=== PATIENT | male | born 1960 ===

== ENCOUNTER → 2021-01-01 15:41 | Outpatient (CLI) | payer OTHER, SELFPAY ==
[2021-01-01 18:05] LABS: COVID19 -Nasal RAPID Negative (Negative)
== END ==
PROVIDERS: PCP Neuromusculoskeletal Medicine & OMM; Visit Provider Physician Assistant
DX: Z01.812 Encounter for preprocedural laboratory examination (principal); Z20.822 Contact with and (suspected) exposure to COVID-19
CPT/HCPCS: 87635

== ENCOUNTER 2021-01-04 06:12 | Day surgery (SDC) | payer OTHER, SELFPAY ==
[2021-01-04] VITALS (21 sets, daily range): BP systolic 103–158; BP diastolic 58–96; PULSE 60–90; RESP 12–21; TEMP 36.1–36.8; O2SAT 93–99; BMI 40.3
--- NOTE | 2021-01-04 07:19 | PM.PREOP ---
Pre-operative Note COVID-19 COVID-19 status: Negative Result date/Date tested (Pos, Neg/Pending): 01/01/21 Interval Note History & Physical reviewed/Exam performed by Physician: Yes Changes to H&P: No
[2021-01-04] MEDS: LACTATED RINGERS 1,000 ML 42 ML IV ×2 (07:23→09:34)
[2021-01-04] MEDS: CEFAZOLIN 2 GM/100 ML FROZ.PIGGY IV ×2 (07:45→16:01)
--- NOTE | 2021-01-04 08:00 | DI.RAD.S_ITS ---
PROCEDURE: XR LUMBAR SPINE 2-3V INDICATIONS: LAMINCTOMY TECHNIQUE: 2 operative views of the lumbar spine were acquired. COMPARISON: [facility], MR, MR LUMBAR SPINE WITHOUT CONTRAST, 07/14/2020, 9:36. FINDINGS: 2 operative images demonstrate localization of the L4-L5 level posteriorly with metallic instruments IMPRESSION: Localization operative films for lumbar surgery Dictated by: Zion Morrell M.D. on 01/04/2021 at 11:09 Approved by: Zion Morrell M.D. on 01/04/2021 at 11:11
--- NOTE | 2021-01-04 08:12 | SUR.OPER ---
Prone on spine table, head in foam head support, padded chest and pelvic supports, gel pad at knees, lower legs supported by pillows; nipples, genitalia and toes free of pressure, arms secured on foam padded arm boards at <90 degrees abduction. Tape over blanket at thigh secured to table.
[2021-01-04] MEDS: THROMBIN (RECOMBINANT) 5,000 UNIT VIAL 5000 UNIT TOP (08:17)
[2021-01-04] MEDS: SODIUM CHLORIDE 0.9% 1,000 ML, GENTAMICIN 80 MG IRR (08:18)
[2021-01-04] MEDS: VANCOMYCIN 1,000 MG VIAL 1000 MG TOP (08:18)
[2021-01-04] MEDS: BUPIVACAINE 0.5% (PF) 4 ML, MORPHINE-PF 4 MG, BUTORPHANOL 1 MG, fentaNYL 100 MCG INJ (08:25)
--- NOTE | 2021-01-04 08:33 | SUR.OPER ---
GLASSES TO PACU WITH PATIENT IN LABELED BAG.
--- NOTE | 2021-01-04 09:43 | P.OP_ITS ---
Operative Date/Time/Diagnoses Date of procedure: 01/04/21 Time of procedure: 09:43 Pre-op diagnosis: Lumbar stenosis with radiculopathy Chronic pain Morbid obesity BMI 40.3 Post-op diagnosis: same Procedure & Clinicians Procedure: L2-3, L3-4, L4-5 laminectomies Use of microscope Placement of epidural catheter Same procedure as scheduled: Yes Indications: [age] year old male with intractable pain from lumbar stenosis. They had failed conservative management and requested operative intervention. Risks and benefits of surgery were discussed and appropriate consents were obtained. Surgeon: Mike Frances Student Support Advisor: Ale Boland Anesthesia Type: General Operative Notes Findings: None Closure Type: primary Specimen(s): none sent Applied: catheter Estimated Blood Loss (mL): 70 Procedure in detail: Patient was brought to the operating room and intubated on the table. A time-out was performed. There were rolled over the well-padded prone position on the Rishi table. The back was prepped and draped in standard sterile fashion. Preoperative antibiotics were given. Using fluoroscopy, a 7 cm incision was made to the well marked right of the midline from L2 through 5. We used Bovie to come down to and split the fascia. We then used the NuVasive MaXcess dilators with fluoroscopy and then opened our retractors. The soft tissue was cleared off with Bovie, a marker was placed, an x-ray was taken to confirm positioning. We then brought in the microscope. A combination of high-speed bur and Kerrison were used to perform a right-sided laminectomy at L4-5. We carefully depressed the dura and reached across to the opposite side and removed the facet hypertrophy and ligamentum to open up the central canal. We cleared out the foramen to decompress the L4 roots. We then moved up to the L3-4 level with a retractor. Again we performed right- sided laminectomy and carefully reached out to the opposite side as well as cleared out the neural foramen until the canal and the exiting L3 roots were free. We then moved up to the L2-3 level with retractors. We performed a right-sided laminectomy and carefully retracted the dura and decompress the opposite side to clear out the entire central canal as well as the foramen with the exiting L2 roots. At the end of this the ball probe could be swept cephalad caudally and out the foramen at every level and everything was open. He was still having fair amount of oozing from all of his bone and muscle and we used FloSeal for hemostasis. The wound was copiously irrigated. An epidural catheter was filled with 100 mcg of fentanyl, 2 mg morphine, 1 mg Stadol, and 4 mL of 0.5% Marcaine. The dura was carefully depressed under the laminotomy site and the catheter was advanced 6 cm cephalad. The retractor was removed and the fascia was closed. The epidural catheter was then injected without resistance and removed. Vancomycin powder was placed in the wound. A superficial drain was placed. Superficial and skin were closed. Sterile dressing was placed. The patient was then rolled over, transferred to the stretcher, and brought to recovery room without complications. Due to his morbid obesity with a BMI greater than 40, this surgery took approximately 30% longer. This was much more complex as we had to work through a deep retractor which limited our mobility and the decompression and increase the time. His morbid obesity also increases his probable postoperative hospital stay with increased risk of infection complications, respiratory complications, etc.. He also has chronic pain which will most likely increase his postoperative stay with pain management. Complications: none Post-operative Condition: stable Disposition: PACU Plan for aftercare: Overnight admission. Maybe 1-2 days of pain management due to his pain tolerance from his chronic pain medication.
[2021-01-04] MEDS: fentaNYL 100 MCG/2 ML INJ IV ×2 (10:35→10:51)
[2021-01-04] MEDS: HYDROMORPHONE 2 MG INJ IV ×4 (10:42→11:19)
[2021-01-04] MEDS: OXYCODONE IR 5 MG TABLET 10 MG PO (10:58)
--- NOTE | 2021-01-04 11:35 | SUR.PHASEI ---
Report to Toney, transition to 217 pending
[2021-01-04] MEDS: MORPHINE ER 15 MG TABLET PO (12:40)
[2021-01-04] MEDS: hydrOXYzine pamoate 25 MG CAPSULE PO ×3 (12:40→21:10)
[2021-01-04] MEDS: LACTATED RINGERS 1,000 ML 125 ML IV ×2 (12:40→21:11)
--- NOTE | 2021-01-04 13:10 | PT.IIE ---
Current Diagnoses Chronic pain syndrome (01/04/21) Spondylosis without myelopathy or radiculopathy, lumbar region (01/04/21) Spinal stenosis, lumbar region with neurogenic claudication (01/04/21) Strain of muscle, fascia and tendon of lower back, initial encounter (01/04/21) Surgery Performed Operation Date: 01/04/21 07:45 Actual Procedures p L2-5 laminectomies(Not Applicable) - Mike Frances MD Physical Therapy Inpatient Evaluation/Re-Eval M1 PT/OT-IP Prior Functional Status Start: 01/04/21 14:06 Freq: NEEDED Status: Active Protocol: Document 01/04/21 13:10 AB (Rec: 01/04/21 14:32 AB [id number]) Medical Review Prior Functional Status Medical History Reviewed Yes Communication able to make needs known; pt is a little drowsy Mobility and Gait pt stated that he is independent with all mobilities and ambulation without AD but occasionally uses a SPC for ambulation depending on back pain Social History Household Members spouse Living Arrangements House Number of Floors (Floors) One Floor Number of Stairs To Enter/Railing? 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 PT-IP Current Condition Start: 01/04/21 14:06 Freq: NEEDED Status: Active Protocol: Document 01/04/21 13:10 AB (Rec: 01/04/21 14:32 AB [id number]) Physical Therapy Current Condition Current Condition Evaluation Date 01/04/21 Treatment Diagnosis s/p L2-5 lami; difficulty in walking Onset Date 01/04/21 Precautions Lumbar Precautions Log Roll,No Twisting,Limit Bending,Lifting Restriction of 10 lbs,Gait Belt above Incisional Area M3 PT-IP Subjective Start: 01/04/21 14:06 Freq: NEEDED Status: Active Protocol: Document 01/04/21 13:10 AB (Rec: 01/04/21 14:32 AB [id number]) Subjective Physical Therapy Visit Type Type Initial Evaluation Visit Start Time 13:10 Visit Stop Time 13:50 Total Visit Minutes 40 Number of BUSINESS LAWYER Visits 0 Physical Therapy Visit Comments Patient Comments pt is agreeable to do PT; c/o increase pain Therapy Pain Assessment Pain When Pain Assessed At Rest Pain Present Pain Present Pain Reported Location lower back Intensity 6 Scale Used Numeric (0 - 10) Pain Behaviors Guarding,Holding Area, Restlessness,Wincing Pain Management Techniques Apply Cold,Modification of Treatment,Re-positioning, Timing of Activity with Medications M4 PT-IP Mobility and Gait Start: 01/04/21 14:06 Freq: NEEDED Status: Active Protocol: Document 01/04/21 13:10 AB (Rec: 01/04/21 14:32 AB [id number]) PT-Bed Mobility Assessment Rolling Type of Rolling Log Rolling Level of Assist Maximal Assistance,1 Person Assistance Supine to Sit Supine to Sit Maximum Assistance,1 Person Assistance PT-Transfer Assessment Sit to and From Stand Sit to and from Stand Minimal Assistance,1 Person Assistance,Use of Upper Extremities Equipment Transfer Assistive Device Gait Belt Orthotic/Prosthetic Devices or Brace: No Transfers Transfer Destination Chair Transfer Technique ambulated using FWW Transfer Ability Level of Assist Minimal Assistance,1 Person Assistance,Use of Upper Extremities Comments Mobility Comments educated pt on back precautions and log roll bed mobility. post-op folder provided. BP in supine: 116/85 , O2 sat at room air 96% ND 85 bpm. completed log roll supine to sit max A and max cues. c/o increase pain but no dizziness/nausea. requires increase time to complete tasks and frequent rest breaks . pt is drowsy and requires cues to keep eyes open. completed sit to stand min A and cues and ambulated towards the chair ~ 12 ft min A and cues. positioned on chair. call light and table placed within reach. spouse arrived during PT session and agreeable to do caregiver training tomorrow depending on how pt is doing. Gait Assessment Gait Gait Assistance Required: Minimum Assistance Distance (Feet) 12 Able to Maintain Weight Bearing Status Yes During Gait Assistive Devices Assistive Device Gait Belt,Front Wheeled Walker Orthotic/Prosthetic Devices or Brace: No Gait Deviations General Gait Pattern Antalgic,Decreased Stride Length,Decreased Feet Clearance Factors Limiting Gait Function Factors Limiting Gait Function Decreased Activity Tolerance, Decreased Sensation,Decreased Strength,Difficulty Following Directions,Limited Range of Motion,Pain,Poor Balance,Poor Safety Awareness PT-Balance Assessment Sitting Balance and Reactions Static Sitting Balance Ability Good Dynamic Sitting Balance Ability Fair Standing Balance and Reactions Static Standing Balance Ability Fair Dynamic Standing Balance Ability Fair Device Used FWW M5 PT-IP Objective Assessments Start: 01/04/21 14:06 Freq: NEEDED Status: Active Protocol: Document 01/04/21 13:10 AB (Rec: 01/04/21 14:32 AB [id number]) Orientation Orientation/Cognition Orientation Name,Place,Situation Safety Awareness Decreased Safety Awareness Gross Range of Motion Lower Extremity ROM Assessment Right Impaired Impairments R knee flexion: ~ 15 degrees; pt stated that he has knee surgeries x 5 and is limited with ROM due to his surgeries Strength Lower Extremity Strength Assessment Right Impaired Hip 3+/5 Knee 3+/5 Sensation Assessment Sensation Sensation Description Numbness Comments Sensation Comments stated chronic decrease sensation on lateral thighs R> L due to knee surgeries Muscle Tone Muscle Tone WNL Yes M6 PT-IP Treatment Start: 01/04/21 14:06 Freq: NEEDED Status: Active Protocol: Document 01/04/21 13:10 AB (Rec: 01/04/21 14:32 AB [id number]) Physical Therapy Treatment Education Education Provided Precautions,Weight Bearing Status,Post-Op Packet,Safety M7 PT-IP Assessment and Plan Start: 01/04/21 14:06 Freq: NEEDED Status: Active Protocol: Document 01/04/21 13:10 AB (Rec: 01/04/21 14:32 AB [id number]) PT Summary Assessment and Plan Potential Rehabilitation Potential Good Status of Condition at Evaluation Evolving Summary Impairments Pain,ROM,Strength,Balance, Coordination,Sensation, Cognition,Bed Mobility, Transfers,Gait,Activity Tolerance Assessment Summary pt requiring max A with bed mobility and min A with transfers and ambulation using FWW. c/o increase pain limiting mobility. pt stated that he plans to go home tomorrow but will do whatever he has to do. will do caregiver training when appropriate. will continue to assess progress. Goals Bed Mobility Goal Independent Transfer Goal Independent,Front Wheeled Walker Gait Goal Independent,Front Wheel Walker Gait Distance 150 Days to Meet Goals 5 Frequency of Treatment Frequency Of Treatment Twice a Day Treatment Plan Physical Therapy Treatment Plan Bed Mobility Training,Transfer Training,Gait Training, Therapeutic Exercise,Balance Retraining,Post Op Education, Discharge Planning,Hot or Cold Pack,Neuromuscular Re-ed, Coordination Retraining Other Recommendations and Next Treatment bed mobility, ambulation, Focus caregiver training when appropriate Recommendations To Nursing Amount of Assist Needed 1 Person Assist Discharge Recommendations PT Discharge Recommendations Home with Assistance Transportation Needs at Discharge Private Vehicle
[2021-01-04] MEDS: GABAPENTIN 300 MG CAPSULE PO ×2 (14:39→21:10)
[2021-01-04] MEDS: OXYCODONE IR 5 MG TABLET PO ×2 (17:00→21:10)
[2021-01-04] MEDS: SENNOSIDES 8.6 MG TABLET 17.2 MG PO (21:10)
[2021-01-04] MEDS: PRAMIPEXOLE 1 MG TABLET PO (21:10)
[2021-01-04] MEDS: DOCUSATE 100 MG CAPSULE PO (21:10)
[2021-01-04] MEDS: TIZANIDINE 4 MG TABLET PO (21:10)
[2021-01-05] MEDS: CEFAZOLIN 2 GM/100 ML FROZ.PIGGY IV (00:01)
[2021-01-05] MEDS: MORPHINE ER 15 MG TABLET PO ×2 (00:01→12:12)
[2021-01-05 04:00] VITALS: BP 120/66; PULSE 55; RESP 18; TEMP 36.4; O2SAT 98
[2021-01-05 05:28] LABS: Hematocrit 36.6 % (41-53); Hemoglobin 11.9 g/dL (13.5-17.5)
[2021-01-05] MEDS: OXYCODONE IR 5 MG TABLET 10 MG PO ×2 (05:59→09:44)
[2021-01-05] MEDS: PANTOPRAZOLE 20 MG TABLET PO (06:00)
[2021-01-05] MEDS: hydrOXYzine pamoate 25 MG CAPSULE PO (06:00)
[2021-01-05 07:33] VITALS: O2SAT 99
[2021-01-05 07:35] VITALS: BP 130/73; PULSE 64; RESP 18; TEMP 36.8; O2SAT 99
--- NOTE | 2021-01-05 08:14 | PM.PNPO.1 ---
Subjective Subjective Date Patient Seen: 01/05/21 Time Patient Seen: 08:14 Interval history: He is doing very well. Good oral pain control. Exam Vital Signs (past 8 hours): - 01/05/21 04:00 01/05/21 07:33 Temperature 97.6 F Pulse Rate 55 L Respiratory Rate 18 Blood Pressure 120/66 Pulse Oximetry 98 99 Oxygen Delivery Method Room Air Oxygen Flow Rate 0 Const Orientation: alert and oriented x3 Back/Spine/Pelvis Other: CDI. 5/5 motor both lower extremities Objective Labs Result Diagrams: 01/05/21 05:07 Labs: Laboratory Results - last 24 hr 01/05/21 05:07 Hgb 11.9 L Hct 36.6 L PFSH Social History household members: spouse Smoking Status: Never smoker alcohol intake: current Assessment & Plan Post-op Postoperative Procedures: Procedures Operation Date: 01/04/21 07:45 Actual Procedures Side Surgeon p L2-5 laminectomies Not Applicable Mike Frances MD He is doing well. Plan to discharge home today.
[2021-01-05] MEDS: CITALOPRAM 10 MG TABLET PO (09:44)
[2021-01-05] MEDS: ASPIRIN EC 81 MG TABLET PO (09:44)
[2021-01-05] MEDS: GABAPENTIN 300 MG CAPSULE PO (09:44)
[2021-01-05] MEDS: FINASTERIDE 5 MG TABLET PO (09:44)
[2021-01-05] MEDS: DOCUSATE 100 MG CAPSULE PO (09:44)
--- NOTE | 2021-01-05 11:31 | PT.IPTN ---
Current Diagnoses Chronic pain syndrome (01/04/21) Spondylosis without myelopathy or radiculopathy, lumbar region (01/04/21) Spinal stenosis, lumbar region with neurogenic claudication (01/04/21) Strain of muscle, fascia and tendon of lower back, initial encounter (01/04/21) Surgery Performed Operation Date: 01/04/21 07:45 Actual Procedures p L2-5 laminectomies(Not Applicable) - Mike Frances MD Physical Therapy Treatment Note M2 PT-IP Current Condition Start: 01/04/21 14:06 Freq: NEEDED Status: Active Protocol: Document 01/04/21 13:10 AB (Rec: 01/04/21 14:32 AB [id number]) Physical Therapy Current Condition Current Condition Evaluation Date 01/04/21 Treatment Diagnosis s/p L2-5 lami; difficulty in walking Onset Date 01/04/21 Precautions Lumbar Precautions Log Roll,No Twisting,Limit Bending,Lifting Restriction of 10 lbs,Gait Belt above Incisional Area M3 PT-IP Subjective Start: 01/04/21 14:06 Freq: NEEDED Status: Active Protocol: Document 01/05/21 11:13 CLB (Rec: 01/05/21 12:21 CLB [id number]) Subjective Physical Therapy Visit Type Type Treatment Note Visit Start Time 11:13 Visit Stop Time 11:31 Total Visit Minutes 18 Notes present for CG training. Number of OBSERVER ELECTRICAL PROSPECTING Visits 1 Physical Therapy Visit Comments Patient Comments Pt agreeable to do therapy, present to assist pt Therapy Pain Assessment Pain When Pain Assessed During Mobility Pain Present Pain Present Pain Reported Location lower back Intensity 4 Scale Used Numeric (0 - 10) Pain Behaviors Wincing Pain Management Techniques Modification of Treatment, Timing of Activity with Medications M4 PT-IP Mobility and Gait Start: 01/04/21 14:06 Freq: NEEDED Status: Active Protocol: Document 01/05/21 11:13 CLB (Rec: 01/05/21 12:21 CLB [id number]) PT-Bed Mobility Assessment Rolling Type of Rolling Log Rolling Level of Assist Minimal Assistance,1 Person Assistance Supine to Sit Supine to Sit Minimal Assistance,1 Person Assistance Sit to Supine Sit to Supine Minimal Assistance,1 Person Assistance Scooting Scooting to Edge of Bed Standby Assistance PT-Transfer Assessment Sit to and From Stand Sit to and from Stand Contact Guard Assistance,1 Person Assistance,Use of Upper Extremities Equipment Transfer Assistive Device Gait Belt Orthotic/Prosthetic Devices or Brace: No Transfers Transfer Destination Bed,Chair Transfer Technique ambulated using FWW Transfer Ability Level of Assist Standby Assistance Comments Mobility Comments Pt able to recall 3/3 back precautions. Pt stood CGA from chair then required Min A getting on second gown. Pt then ambulated in alfredo ~200ft w/FWW/SBA. Pt returned to room and performed LR into bed with assisting with LE. After a brief rest pt performed LR OOB with assisting. Pt has adjustable bed at home but plans to sleep in recliner. Pt then stood SBA from bed and transferred back to chair SBA. Discussed lower body dressing with pt and OT entered room at end of treat to assist pt with dressing. Gait Assessment Gait Gait Assistance Required: Standby Assistance,1 Person Assist Distance (Feet) 200 Able to Maintain Weight Bearing Status Yes During Gait Assistive Devices Assistive Device Gait Belt,Front Wheeled Walker Orthotic/Prosthetic Devices or Brace: No Gait Deviations General Gait Pattern Antalgic,Decreased Stride Length,Decreased Feet Clearance Factors Limiting Gait Function Factors Limiting Gait Function Decreased Activity Tolerance, Decreased Sensation,Decreased Strength,Difficulty Following Directions,Limited Range of Motion,Pain,Poor Balance,Poor Safety Awareness Comments Gait Comments Pt required cues for proper positioning inside walker and was able to correct and follow through during ambulation. Stair Climbing Assessment Comments Stair Climbing Comments ramp to enter home. M5 PT-IP Objective Assessments Start: 01/04/21 14:06 Freq: NEEDED Status: Active Protocol: Document 01/04/21 13:10 AB (Rec: 01/04/21 14:32 AB [id number]) Orientation Orientation/Cognition Orientation Name,Place,Situation Safety Awareness Decreased Safety Awareness Gross Range of Motion Lower Extremity ROM Assessment Right Impaired Impairments R knee flexion: ~ 15 degrees; pt stated that he has knee surgeries x 5 and is limited with ROM due to his surgeries Strength Lower Extremity Strength Assessment Right Impaired Hip 3+/5 Knee 3+/5 Sensation Assessment Sensation Sensation Description Numbness Comments Sensation Comments stated chronic decrease sensation on lateral thighs R> L due to knee surgeries Muscle Tone Muscle Tone WNL Yes M6 PT-IP Treatment Start: 01/04/21 14:06 Freq: NEEDED Status: Active Protocol: Document 01/04/21 13:10 AB (Rec: 01/04/21 14:32 AB [id number]) Physical Therapy Treatment Education Education Provided Precautions,Weight Bearing Status,Post-Op Packet,Safety M7 PT-IP Assessment and Plan Start: 01/04/21 14:06 Freq: NEEDED Status: Active Protocol: Document 01/05/21 11:13 CLB (Rec: 01/05/21 12:21 CLB [id number]) PT Summary Assessment and Plan Potential Rehabilitation Potential Good Status of Condition at Evaluation Evolving Summary Impairments Pain,ROM,Strength,Balance, Coordination,Sensation, Cognition,Bed Mobility, Transfers,Gait,Activity Tolerance Progress Towards Goals Progressing Toward Goals Assessment Summary Pt improved with all mobility, pt requiring CGA for sit<> stand from chair. Pt required Min A of LE's during bed mobility pt's able to assist him although pt states he will be sleeping in his recliner. Goals Bed Mobility Goal Independent Transfer Goal Independent,Front Wheeled Walker Gait Goal Independent,Front Wheel Walker Gait Distance 150 Days to Meet Goals 5 Frequency of Treatment Frequency Of Treatment Twice a Day Treatment Plan Physical Therapy Treatment Plan Bed Mobility Training,Transfer Training,Gait Training, Therapeutic Exercise,Balance Retraining,Post Op Education, Discharge Planning,Hot or Cold Pack,Neuromuscular Re-ed, Coordination Retraining Recommendations To Nursing Amount of Assist Needed 1 Person Assist Discharge Recommendations PT Discharge Recommendations Home with Assistance Transportation Needs at Discharge Private Vehicle
--- NOTE | 2021-01-05 11:53 | PC.NURSE ---
Assess- Patients lucio catheter taken out earlier today and he has voided 600cc. Dressing to lower back will be changed to a cover site before he leaves. CMS wnl and farm or ranch animal caretaker training with patients done.
--- NOTE | 2021-01-05 11:56 | OT.IP.EVAL ---
Current Diagnoses Chronic pain syndrome (01/04/21) Spondylosis without myelopathy or radiculopathy, lumbar region (01/04/21) Spinal stenosis, lumbar region with neurogenic claudication (01/04/21) Strain of muscle, fascia and tendon of lower back, initial encounter (01/04/21) Surgery Performed Operation Date: 01/04/21 07:45 Actual Procedures p L2-5 laminectomies(Not Applicable) - Mike Frances MD Occupational Therapy Inpatient Evaluation/Re-Eval M1 PT/OT-IP Prior Functional Status Start: 01/04/21 14:06 Freq: NEEDED Status: Active Protocol: Document 01/05/21 12:40 CGR (Rec: 01/05/21 12:55 CGR [id number]) Medical Review Prior Functional Status Medical History Reviewed Yes Communication able to make needs known Mobility and Gait pt stated that he is independent with all mobilities and ambulation without AD but occasionally uses a SPC for ambulation depending on back pain Activities of Daily Living and IADL's Pt states that he is IND for all ADLs Social History Household Members spouse Living Arrangements House Number of Floors (Floors) One Floor Number of Stairs To Enter/Railing? 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 OT-IP Current Condition Start: 01/05/21 12:56 Freq: Status: Active Protocol: Document 01/05/21 12:40 CGR (Rec: 01/05/21 12:55 CGR [id number]) Occupational Therapy Current Condition Current Condition Evaluation Date 01/05/21 Treatment Diagnosis L2-5 lami Diagnosis Onset Date 01/04/21 Post Operative Precautions Lumbar Precautions Log Roll,No Twisting,Limit Bending,Lifting Restriction of 10 lbs,Gait Belt above Incisional Area M3 OT- IP Subjective and Pain Start: 01/05/21 12:56 Freq: Status: Active Protocol: Document 01/05/21 12:40 CGR (Rec: 01/05/21 12:55 CGR [id number]) OT- Subjective Occupational Therapy Visit Type Type Initial Evaluation Visit Start Time 11:30 Visit Stop Time 11:56 Total Visit Minutes 26 OT Pain Assessment Pain When Pain Assessed At Rest Pain Present Pain Present Pain Reported Location lower back Intensity 4 Scale Used Numeric (0 - 10) Management Techniques Distraction,Modification of Treatment,Re-positioning M4 OT- IP ADL's Start: 01/05/21 12:56 Freq: Status: Active Protocol: Document 01/05/21 12:40 CGR (Rec: 01/05/21 12:55 CGR [id number]) OT [id number] Comments OT Self-Feeding Comments Not meal time OT ADL-Grooming General Evaluation Grooming Ability Standby Assistance Areas Needing Assistance Face Washing Comments OT Grooming Comments standing at sink OT ADL-Oral Care Comments Oral Care Comments Pt declined, states he performed earlier OT ADL-Dressing Comments OT Dressing Comments LB dressing training offered. Pt states he will have his assist with all of his LB dressing and declined LB dressing training. OT ADL-Toileting General Evaluation Toileting Ability Standby Assistance Comments OT Toileting Comments urinated seated on toilet OT ADL-Bathing Comments OT Bathing Comments not performed M5 OT- IP IADL's Start: 01/05/21 12:56 Freq: Status: Active Protocol: Document 01/05/21 12:40 CGR (Rec: 01/05/21 12:55 CGR [id number]) OT-Instrumental Activities of Daily Living Deficits IADL Deficits Identified No Deficits Home Safety Awareness Awareness of Need for Assistance at Home Good Awareness Ability to Problem Solve Emergency Able to Problem Solve Situations M6 OT- IP Functional Cognition Start: 01/05/21 12:56 Freq: Status: Active Protocol: Document 01/05/21 12:40 CGR (Rec: 01/05/21 12:55 CGR [id number]) Cognitive Factors Limiting Selfcare Function Cognitive Ability Level of Alertness Alert Patient Orientation Name,Age,Birthday,Month,Date, Year,Day of Week,Place, Situation Attention Span Ability Capable of Focused Attention, Capable of Sustained Attention Ability to Follow Commands Able to Follow Multi-Step Commands Memory Description No Deficits Noted Safety Awareness No Deficits Noted Problem Solving Ability No deficits Noted OT- Vision and Hearing OT- Hearing Assessment OT- Hearing Assessment WFL OT- Vision Assessment Visual Acuity Glasses All The Time Visual Attentiveness WFL Occular Pursuits WFL Visual Convergence Impaired M7 OT- IP Mobility and Balance Start: 01/05/21 12:56 Freq: Status: Active Protocol: Document 01/05/21 12:40 CGR (Rec: 01/05/21 12:55 CGR [id number]) OT-Transfer Assessment Sit to and From Stand Sit to and from Stand Standby Assistance,Contact Guard Assistance Transfers Transfer Ability Standby Assistance,Contact Guard Assistance Technique Transfer Destination Chair,Toilet Transfer Technique Stand Step Pivot Devices Transfer Assistive Devices Gait Belt,Front Wheeled Walker Comments Mobility Comments Pt able to ambulate around the room and bathroom. OT- Gait Assessment Gait Gait Assistance Required: Standby Assistance,Contact Guard Assist Assistive Devices Assistive Device Gait Belt,Front Wheeled Walker OT- Balance Assessment Sitting Balance and Reactions Static Sitting Balance Ability Good Dynamic Sitting Balance Ability Fair M8 OT- IP Objective Assessments Start: 01/05/21 12:56 Freq: Status: Active Protocol: Document 01/05/21 12:40 CGR (Rec: 01/05/21 12:55 CGR [id number]) OT Gross Range of Motion Upper Extremity Range of Motion Assessment Bilaterally Impaired ROM Impairments B shlds 0-90 with pain. OT Strength Comments Strength Comments grossly 4/5 OT- Coordination Assessment Upper Extremity Finger to Nose Test Within Functional Limits Finger Tapping Test Within Functional Limits OT-Muscle Tone Assessment Muscle Tone WNL Yes OT Sensation Assessment Edema Edema Absent M9 OT- IP Assessment and Plan Start: 01/05/21 12:56 Freq: Status: Active Protocol: Document 01/05/21 12:40 CGR (Rec: 01/05/21 12:55 CGR [id number]) OT Summary Assessment and Plan Potential Rehabilitation Potential Good Analytic Complexity at Evaluation Low Summary OT Impairments Pain,Range of Motion,Balance, Functional Mobility,Dressing, Toileting,Bathing,Toilet Transfers,Shower Transfers, Activity Tolerance Progress Towards Goals Progressing Toward Goals Assessment Summary Pt presents as a low complexity evaluation s/p admit for L2-5 Lami. Pt is mobilizing with SBA to CGA and is knowledgeable on his back precautions. Pt will benefit from continued therapy PRN but is safe for d/c home with family assist. Goals Dressing Goal Independent,[employer],Sock Aid Toileting Goal Independent Bathing Goal Independent Toilet Transfer Goal Independent Shower Transfer Goal Independent Days to Meet Goals 2 Frequency of Treatment Frequency Of Treatment Once a Day Treatment Plan OT Treatment Plan ADL Training,Functional Cognition Training,Functional Mobility,Patient/Family Education,Discharge Planning Other Treatment Recommendations and Next shower Treatment Focus Discharge Recommendations OT Discharge Recommendations Home with Assistance Home Equipment Needs tub transfer bench. Transportation Needs at Discharge Private Vehicle
--- NOTE | 2021-01-05 14:08 | CM.DANOTE ---
Discharge Planning/Care Management DCP: assessment: case received and discussed in Team Rounds. PT/OT were ordered. First evals set for today. Pt is a 60 year old male who admitted yesterday for a scheduled spinal surgery. Payer: [facility] Surgeon: Dr. Frances. Pt was given ok for d/c today by Dr. Frances, was cleared by PT/OT after caregiver training with pt's Lacey and they left for their home in [place] earlier today. CM Discharge Assessment Start: 01/05/21 14:07 Freq: Status: Active Protocol: Document 01/05/21 14:08 ITV (Rec: 01/05/21 14:08 ITV [id number]) Discharge Planning Assessment Advance Directives? No History Provided By Medical Record Prior Living Arrangements House Household Members spouse Discharge Plan Home Pre-Anesthesia Assessment Start: 01/02/21 17:01 Freq: Status: Discharge Protocol: Document 01/02/21 17:01 [facility] (Rec: 01/02/21 17:03 [facility] [id number]) Pre-Anesthesia Assessment Diagnostic Results BMP/CMP,CBC,EKG,Other Comment Covid negative 01/01/21 Seen Specialist in Last 12 Months Yes Specialist Seen Orthopedist Height 175.26 cm HgbA1C 6.2 Date 12/12/20 Comment Covid negative 01/01/21
--- NOTE | 2021-01-05 14:49 | CM.DANOTE ---
Discharge Planning/Care Management DCP: assessment: case received, EMR reviewed and discussed case in Team Rounds. PT and OT were working with pt. Pt is a 51 year old male who admitted yesterday for a scheduled spinal/cervical surgery. Surgeon: Dr. Frances Payer: [facility] Management. Pt and Dai worked with therapists and Dr. Frances ok'd him for d/c to home today. Went to room to check in with pt. He has already left for home in company of family. No d/c concerns were noted by the care team members. CM Discharge Assessment Start: 01/05/21 14:07 Freq: Status: Active Protocol: Document 01/05/21 14:08 ITV (Rec: 01/05/21 14:08 ITV [id number]) Discharge Planning Assessment Advance Directives? No History Provided By Medical Record Prior Living Arrangements House Household Members spouse Discharge Plan Home Document 01/05/21 14:48 ITV (Rec: 01/05/21 14:49 ITV [id number]) Discharge Planning Assessment Advance Directives? No History Provided By Medical Record Prior Living Arrangements House Household Members spouse,family Is patient alert and oriented? Yes Discharge Plan Home Pre-Anesthesia Assessment Start: 01/02/21 17:01 Freq: Status: Discharge Protocol: Document 01/02/21 17:01 [facility] (Rec: 01/02/21 17:03 [facility] [id number]) Pre-Anesthesia Assessment Diagnostic Results BMP/CMP,CBC,EKG,Other Comment Covid negative 01/01/21 Seen Specialist in Last 12 Months Yes Specialist Seen Orthopedist Height 175.26 cm HgbA1C 6.2 Date 12/12/20 Comment Covid negative 01/01/21
== END 2021-01-05 12:44 | disposition home or self-care (01) ==
LOC: OR 12:07 → AC 12:08
PROVIDERS: PCP Neuromusculoskeletal Medicine & OMM; Referring Provider Neuromusculoskeletal Medicine & OMM; Visit Provider Orthopaedic Surgery
PROC: (CPT 63047; principal; 2021-01-04 07:45)
DX: M48.062 Spinal stenosis, lumbar region with neurogenic claudication (principal); M54.16 Radiculopathy, lumbar region; E66.9 Obesity, unspecified; Z68.41 Body mass index [BMI] 40.0-44.9, adult; J45.20 Mild intermittent asthma, uncomplicated; R73.03 Prediabetes; G47.33 Obstructive sleep apnea (adult) (pediatric)
CPT/HCPCS: 63047; 63048 ×2; 36415; 72100; 76000; 82962; 85014; 85018; 94762; 97116; 97162; 97165; 97530; 97535; A9270; J0595; J0690; J1100; J1170; J2250; J2274; J2405; J2704; J3010